=== PATIENT | male | born 1930 ===

== ENCOUNTER 2016-10-11 10:40 | Observation (INO) | payer MEDICARE, MEDICAID ==
[2016-10-11] VITALS (13 sets, daily range): BP systolic 129–165; BP diastolic 71–85
[~2016-10-11] VITALS: Ht 172.7 cm; Wt 77.1 kg
[~2016-10-11 10:40] MED LIST: ceFAZolin sod 1 GM in NS 55 ML IVPB ONE
--- NOTE | 2016-10-11 11:33 | Pre-Procedure Note/Attestation ---
Pre-Procedure Note/Attestation Complete Prior to Procedure Planned Procedure: not applicable Procedure Narrative: TURBT Indications for Procedure Pre-Operative Diagnosis: yes Attestation I attest that I discussed the nature of the procedure; its benefits; risks and complications; and alternatives (and the risks and benefits of such alternatives ), prior to the procedure, with the patient (or the patient's legal textile designs sales representative). I attest that, if there was a reasonable possibility of needing a blood transfusion, the patient (or the patient's legal textile designs sales representative) was given the [facility] standardized written summary, pursuant to the Pranay Wilder Blood Safety Act ([place] Health and Safety Code # 1645, as amended). I attest that I re-evaluated the patient just prior to the surgery and that there has been no change in the patient's H&P, except as documented below: Clark Nichole MD Oct 11, 2016 11:33
--- NOTE | 2016-10-11 11:39 | Brief Operative Note ---
Immediate Post Operative Note Operative Note Pre-op Diagnosis: yes Procedure: TURBT Post-op Diagnosis: same Post-op Diagnosis: same as pre-op Surgeon: Jason Nichole Anesthesia: general Specimen: yes Complications: none Condition: stable Estimated Blood Loss: minimal Implant(s) used?: No Clark Nichole MD Oct 11, 2016 11:39
[2016-10-11] MEDS ORDERED: JANUMET XR 50-1 EAC1 ORAL (11:55)
[2016-10-11] MEDS ORDERED: PAXIL20 MG ORAL (11:55)
[2016-10-11] MEDS ORDERED: ATORVASTATIN CA20 MG ORAL (11:56)
[2016-10-11] MEDS ORDERED: GLIPIZIDE XL10 M1 ORAL (11:57)
[2016-10-11] MEDS ORDERED: TRIAMTERENE-HC1 EAC6 ORAL (11:57)
[2016-10-11] MEDS ORDERED: TAMSULOSIN HCL0.4 MG ORAL (11:58)
[2016-10-11] MEDS ORDERED: BETAPACE80 MG PO (11:58)
[2016-10-11] MEDS ORDERED: PROSCAR5 MG ORAL (11:59)
[2016-10-11] MEDS ORDERED: BENAZEPRIL HCL10 MG ORAL (11:59)
[2016-10-11] MEDS ORDERED: NS Irrig 1000ml ONE (12:00)
[2016-10-11] MEDS ORDERED: LR 1000ml ONE (12:00)
[2016-10-11] MEDS ORDERED: Lidocaine 1% MPF 10mg/ml 5ml ONE (12:00)
[2016-10-11] MEDS ORDERED: Zemuron 50mg/5ml Inj IV ONE (12:00)
[2016-10-11] MEDS ORDERED: fentaNYL 250mcg/5ml ONE (12:00)
[2016-10-11] MEDS ORDERED: Neostigmine 1mg/ml 10ml Inj ONE (12:00)
[2016-10-11] MEDS ORDERED: Glycopyrrolate 0.2mg/ml 1ml Vial ONE (12:00)
[2016-10-11] MEDS ORDERED: Propofol 10mg/ml 20ml IV ONE (12:00)
[2016-10-11] MEDS ORDERED: Sterile Water Irrig 1000ml IRRIG ONE (12:00)
[2016-10-11] MEDS ORDERED: ELIQUIS5 MG PO (12:00)
[2016-10-11] MEDS ORDERED: Sterile Water For Irrig 2000ml IRRIG ONE ×2 (12:00→12:48)
[2016-10-11] MEDS ORDERED: Midazolam 2mg/2ml Inj ONE (12:00)
[2016-10-11] MEDS ORDERED: Iothalamate Meglumine 60% 30ML INJ ONE (12:01)
[2016-10-11] MEDS ORDERED: FENOFIBRIC ACI105 MG PO (12:01)
--- NOTE | 2016-10-11 12:30 | Anethesia Preoperative Eval ---
Anesthesia Pre-op PMH/ROS General Date of Evaluation: Oct 11, 2016 Time of Evaluation: 12:11 Anesthesiologist: Daina ASA Score: ASA 3 Mallampati Score Class I : Soft palate, uvula, fauces, pillars visible Class II: Soft palate, uvula, fauces visible Class III: Soft palate, base of uvula visible Class IV: Only hard plate visible Mallampati Classification: Class II Surgeon: Dionisio Diagnosis: Bladder Pain Surgical Procedure: TURBT Anesthesia History: none Family History: no anesthesia problems Allergies: Coded Allergies: No Known Allergies (Unverified , 10/10/16) Medications: see eMAR Past Medical History Cardiovascular: Reports: HTN, arrhythmia - AFib, other - HL Gastrointestinal/Genitourinary: Reports: GERD, other - Prostate CA Endocrine: Reports: DM PSxH Narrative: TURBTX2, Ventral Hernia Repair Anesthesia Pre-op Phys. Exam Physician Exam Last Vital Signs Date Time Temp Pulse Resp B/P Pulse Ox O2 Delivery O2 Flow Rate FiO2 10/11/16 11:35 98.2 73 18 139/77 97 Room Air Constitutional: NAD Neurologic: CN 2-12 intact Cardiovascular: RRR Respiratory: CTA Gastrointestinal: S/NT/ND Airway Exam Mallampati Score: Class II MO: limited ROM: limited Teeth: missing Anesthesia Pre-op A/P Risk Assessment & Plan Assessment: ASA 3 Plan: GA, BIS, Glidescope Pre-Antibiotics Dru Gram Ancef IV Given Within 1 Hr of Incision: Yes Time Given: 12:31 Edu Underwood MD Oct 11, 2016 12:30
[2016-10-11] MEDS ORDERED: LR 1000ml 1,000 ML IVLG SCH (12:44)
[2016-10-11] MEDS ORDERED: Midazolam 2mg/2ml Inj IVP PRN (12:45)
[2016-10-11] MEDS ORDERED: Atropine Inj 1mg/10ml Syr IV PRN (12:45)
[2016-10-11] MEDS ORDERED: Norco 5mg/325mg tab ORAL PRN ×3 (12:45→16:45)
[2016-10-11] MEDS ORDERED: Oxycodone/Acetaminophen 5-325 ORAL PRN (12:45)
[2016-10-11] MEDS ORDERED: Metoclopramide 10mg/2ml Inj IVP PRN (12:45)
[2016-10-11] MEDS ORDERED: Ketorolac 30mg Inj IV PRN (12:45)
[2016-10-11] MEDS ORDERED: LORazepam Inj 2mg/ml 1ml IV PRN ×2 (12:45→23:00)
[2016-10-11] MEDS ORDERED: Hydromorphone 0.5mg/0.5ml inj IVP PRN (12:45)
[2016-10-11] MEDS ORDERED: Ketorolac 60mg Inj IV PRN (12:45)
[2016-10-11] MEDS ORDERED: DiphenhydrAMINE 50mg/ml Inj IVP PRN (12:45)
[2016-10-11] MEDS ORDERED: Meperidine 25mg/ml Inj IV PRN (12:45)
[2016-10-11] MEDS ORDERED: Labetalol 5mg/ml 20ml vial IV PRN (12:45)
[2016-10-11] MEDS ORDERED: fentaNYL 100 mcg/2 mL IV PRN (12:45)
[2016-10-11] MEDS ORDERED: Norco 7.5mg/325mg tab ORAL PRN (12:45)
--- NOTE | 2016-10-11 13:05 | Immediate Post-Op Evaluation ---
Immediate Post-Op Evalulation Immediate Post-Op Evalulation Procedure: TURBT Date of Evaluation: Oct 11, 2016 Time of Evaluation: 14:04 IV Fluids: 500 LR Blood Products: 0 Estimated Blood Loss: 25 Urinary Output: 100 Blood Pressure Systolic: 129 Blood Pressure Diastolic: 74 Pulse Rate: 75 Respiratory Rate: 16 O2 Sat by Pulse Oximetry: 99 Temperature (Fahrenheit): 97.6 Pain Score (1-10): 2 Nausea: No Vomiting: No Complications 0 Patient Status: awake, reacts, patent, extubated, none Hydration Status: adequate Dru Gram Ancef IV Given Within 1 Hr of Incision: Yes Time Given: 12:31 Edu Underwood MD Oct 11, 2016 13:04
[2016-10-11] MEDS ORDERED: HYDROmorphone 1mg/ml Carpuject IVP PRN (16:45)
[2016-10-11] MEDS: D5 1/2NS w/KCl 20mEq 1,000 ML IV SCH (17:40)
[2016-10-11] MEDS: Docusate 100mg cap ORAL SCH ×2 (17:40→17:41)
[2016-10-11] MEDS: ceFAZolin sod 2 GM in D5W 110 ML IV SCH (20:10)
--- NOTE | 2016-10-11 20:41 | Internal Med Progress Note ---
Subjective Physician Name Stef Carranza Attending Physician Clark Nichole MD Current Medications Medications (Trade) Dose Ordered Sig/Gladys Route PRN Reason Start Time Stop Time Status Last Admin Dose Admin Acetaminophen (Tylenol) 650 mg Q4H PRN ORAL FEVER 10/11/16 16:45 11/10/16 16:44 Acetaminophen (Tylenol) 650 mg Q6H PRN ORAL Mild Pain (Pain Scale 1-3) 10/11/16 16:45 11/10/16 16:44 Acetaminophen/ Hydrocodone Bitart 1 tab 1 tab Q4H PRN ORAL Moderate Pain (Pain Scale 4-6) 10/11/16 16:45 10/18/16 16:44 Acetaminophen/ Hydrocodone Bitart 1 tab 1 tab Q4H PRN ORAL Moderate Pain (Pain Scale 4-6) 10/11/16 16:45 10/18/16 16:44 Cefazolin Sodium/ Dextrose (Ancef/D5W) 110 ml @ 220 mls/hr Q8H IV 10/11/16 20:30 10/12/16 04:59 10/11/16 20:10 Dextrose/ Electrolytes (D5 0.45%NS W/ KCl 20mEq) 1,000 ml @ 100 mls/hr Q10H IV 10/11/16 17:30 11/10/16 17:29 10/11/16 17:40 Docusate Sodium (Colace) 100 mg TWICE A DAY ORAL 10/11/16 18:00 11/10/16 17:59 Hydromorphone HCl (Dilaudid) 1 mg Q3H PRN IVP pain score 4-6 10/11/16 16:45 10/18/16 16:44 Ondansetron HCl (Zofran) 4 mg Q6H PRN IVP Nausea & Vomiting 10/11/16 16:45 11/10/16 16:44 Temazepam (Restoril) 7.5 mg HSPRN PRN ORAL Insomnia 10/11/16 14:00 10/18/16 13:59 Allergies: Coded Allergies: No Known Allergies (Unverified , 10/10/16) Subjective awake, alert, responsive, No CP or SOB Objective Last Vital Signs Date Time Temp Pulse Resp B/P Pulse Ox O2 Delivery O2 Flow Rate FiO2 10/11/16 16:15 97.9 80 16 150/83 98 Nasal Cannula 3.0 General Appearance: WD/WN, no apparent distress, alert EENT: PERRL/EOMI, normal ENT inspection Neck: non-tender, supple Cardiovascular: normal peripheral pulses, normal rate, regular rhythm, no JVD Respiratory/Chest: lungs clear, normal breath sounds, no respiratory distress Abdomen: normal bowel sounds, non tender, soft Genitourinary/Rectal: normal genital exam, other - flores cath with irrigation Extremities: normal range of motion, non-tender Edema: non-pitting Neurologic: recreation therapy director II-XII grossly normal, no motor/sensory deficits, abnormal gait , alert, oriented x 3, responsive, normal mood/affect Skin: normal pigmentation, warm/dry Assessment/Plan Assessment/Plan Bladder CA S/p TURBT (10/11/2016) DM 2 CKD stage 3 BPH Cardiac arrhythmia HTN Prostate CA s/p radiation Plan: IVF Bladder irrigation Abx: Ancef Monitor blood glucose level AM Labs resume home medications Stef Carranza MD Oct 11, 2016 20:41
[2016-10-11] MEDS ORDERED: Atorvastatin 20mg tab ORAL SCH (22:00)
[2016-10-11] MEDS: Sotalol 80mg tab ORAL SCH (22:42)
[2016-10-11] MEDS: Benazepril 10mg tab ORAL SCH (22:42)
[2016-10-11] MEDS: NovoLOG Insulin Flexpen SUBQ SCH (22:46)
[2016-10-12] VITALS: BP 139/74
[2016-10-12] MEDS: D5 1/2NS w/KCl 20mEq 1,000 ML IV SCH (03:41)
[2016-10-12] MEDS: ceFAZolin sod 2 GM in D5W 110 ML IV SCH (03:41)
[2016-10-12 04:00] VITALS: BP 154/82
[2016-10-12] MEDS: NovoLOG Insulin Flexpen SUBQ SCH (06:38)
[2016-10-12 06:59] LABS: MEAN CORPUSCULAR HEMOGLOBIN 29.1 PG (27.0-31.0); MEAN CORPUSCULAR HGB CONC 33.5 G/DL (32.0-36.0); MEAN CORPUSCULAR VOLUME 87 FL (80-99); MEAN PLATELET VOLUME 6.6 FL (6.5-10.1); PLATELET COUNT 247 K/UL (150-450); RED BLOOD COUNT 4.82 M/UL (4.70-6.10); RED CELL DISTRIBUTION WIDTH 13.1 % (11.6-14.8); WHITE BLOOD COUNT 10.1 K/UL (4.8-10.8)
[2016-10-12 07:21] LABS: ALANINE AMINOTRANSFERASE 11 U/L (3-41); ALBUMIN/GLOBULIN RATIO 1.1 (1.0-2.7); ANION GAP 16 (5-15); ASPARTATE AMINO TRANSFERASE 16 U/L (5-40); CALCIUM 8.5 mg/dL (8.6-10.2); CARBON DIOXIDE 27 mEQ/L (20-30); CHLORIDE 93 mEQ/L (98-107); CREATININE 1.3 mg/dL (0.7-1.2); HEMOLYSIS 6; POTASSIUM 3.5 mEQ/L (3.4-4.9); SODIUM 136 mEQ/L (135-145); TOTAL PROTEIN 6.3 g/dL (6.6-8.7)
[2016-10-12 07:43] LABS: MAGNESIUM 1.5 mg/dL (1.7-2.5); PHOSPHORUS 2.1 mg/dL (2.5-4.8)
[2016-10-12 08:00] VITALS: BP 148/88
[2016-10-12] MEDS: Benazepril 10mg tab ORAL SCH (08:28)
[2016-10-12 08:29] VITALS: BP 148/88
[2016-10-12] MEDS: Docusate 100mg cap ORAL SCH (08:29)
[2016-10-12] MEDS: Sotalol 80mg tab ORAL SCH (08:29)
[2016-10-12] MEDS ORDERED: metFORMIN 500mg tab ORAL SCH (09:00)
[2016-10-12] MEDS ORDERED: PARoxetine 20mg tab ORAL SCH (09:00)
[2016-10-12 10:08] LABS: BAND NEUTROPHILS % (MANUAL) 0 % (0-8); BASOPHILS % (MANUAL) 0 % (0-2); EOSINOPHILS % (MANUAL) 0 % (0-3); LYMPHOCYTES % (MANUAL) 7 % (20-45); NEUTROPHILS % (MANUAL) 89 % (45-75); PLATELET ESTIMATE ADEQUATE; PLATELET MORPHOLOGY NORMAL; TOTAL CELLS COUNTED 100
[2016-10-12] MEDS ORDERED: NS Irrig 4000ml IRRIG ONE (11:19)
[2016-10-12] MEDS ORDERED: Tubing IV Secondary IV ONE (11:19)
--- NOTE | 2016-10-12 14:27 | Discharge Summary ---
Discharge Summary Hospital Course Date of Admission Oct 11, 2016 at 14:58 Date of Discharge Oct 12, 2016 at 11:20 Admitting Diagnosis HPI Wilton Woo is a 86 year old male who was admitted on Oct 11, 2016 at 14:58 for Bladder Tumor Hospital Course The patient was seen and examined at bedside and all new and available data was reviewed in the patients chart. Last 24 Hour Vital Signs Date Time Temp Pulse Resp B/P Pulse Ox O2 Delivery O2 Flow Rate FiO2 10/12/16 08:29 86 148/88 10/12/16 08:28 148/88 10/12/16 08:00 97.9 86 20 148/88 95 10/12/16 04:00 97.0 102 18 154/82 96 Nasal Cannula 2.0 10/12/16 00:00 97.0 101 20 139/74 96 Nasal Cannula 2.0 10/11/16 22:42 94 156/85 10/11/16 22:42 156/85 10/11/16 20:00 96.8 94 18 156/85 97 Nasal Cannula 2.0 10/11/16 16:15 97.9 80 16 150/83 98 Nasal Cannula 3.0 10/11/16 15:50 98.0 75 19 160/78 100 Nasal Cannula 3.0 10/11/16 15:35 75 17 165/79 100 Nasal Cannula 3.0 10/11/16 15:20 75 17 164/83 100 Nasal Cannula 3.0 10/11/16 15:05 76 17 159/76 100 Nasal Cannula 3.0 10/11/16 14:50 76 18 160/80 100 Nasal Cannula 3.0 10/11/16 14:35 74 16 160/75 100 Nasal Cannula 3.0 (Patient was seen earlier today. Signature timestamp does not reflect patient encounter time) Stef Carranza MD Discharge Discharge Disposition Patient was discharged to Home with Home Health(06) Discharge Diagnoses: Stef Carranza MD Oct 12, 2016 14:27
--- NOTE | 2016-10-12 23:10 | Discharge Summary ---
DATE OF ADMISSION: 10/11/2016 DATE OF DISCHARGE: 10/12/2016 HISTORY AND HOSPITAL COURSE: This is an 86-year-old very delightful [place]-speaking gentleman. PAST MEDICAL HISTORY: Treated for bladder cancer, history of prostate cancer, status post radiation, diabetes type 2, chronic kidney disease, stage 3, BPH, cardiac arrhythmia, and hypertension who was presented to the hospital as per request by Dr. Clark Nichole. The patient underwent TURBT by Dr. Nichole upon arrival to the hospital. The patient tolerated procedure well. Overnight, he had no complication and subsequently, he was discharged home to be follow up with Dr. Nichole as outpatient. FINAL DIAGNOSES: 1. Bladder cancer, status post TURBT. 2. Diabetic type 2. 3. Chronic kidney disease, stage 3. 4. Benign prostatic hypertrophy. 5. Cardiac arrhythmia. 6. Hypertension. 7. Prostate cancer, status post radiation. MEDICATION ON DISCHARGE: Continue discharge medication list. ACTIVITY: As tolerated. DIET: Would be 1800 ADA cardiac diet. FOLLOWUP: The patient will follow up with Dr. Nichole within one to two weeks. Stef Carranza M.D. DR: ELVER JOB#: [id number] CC:
--- NOTE | 2016-10-13 22:28 | Operative Note - Dictated ---
DATE OF OPERATION: 10/11/2016 PREOPERATIVE DIAGNOSIS: Bladder tumor. POSTOPERATIVE DIAGNOSIS: Bladder tumor. OPERATIONS: Transurethral resection of the bladder tumor and bilateral retrograde pyelograms. OPERATED BY: Clark Nichole M.D. ANESTHESIA: General. FINDINGS: Large mass on the left lateral side of the bladder. 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 Treatment options were explained to him in great length including all potential complications and he signed the consent. The patient was brought to the operating room, placed in lithotomy position, prepped and draped in standard fashion. Under general anesthesia, cystoscopy was introduced into the bladder. Left ureter was strangulated retrograde pyelogram was negative. We had difficulty finding the right ureter so, we avoided doing a retrograde pyelogram on the right side. Using transurethral resectoscope, the mass was resected. After the resecting the superficial of the bladder we found ejection of old clot leaking material or soft tissue material from the pocket on the left lateral wall of the bladder, which after draining and removing all of that material. We find that to be bottom of that capsule left lateral wall of the bladder. Additional tumors were resected and sent to pathologic examination. Tumor bed was fulgurated and Jacinto catheter was placed and left indwelling. The patient tolerated the procedure well. No evidence of complications. Clark Nichole M.D. DR: ADRIENNE JOB#: [id number] CC:
--- NOTE | 2016-10-17 15:56 | Diagnostic Imaging Report ---
Indication: MASS, intraoperative Technique: Digital intraoperative images Comparison: None Findings: Intraoperative images document opacification of left ureter and left renal collecting system, the latter being minimally dilated. Impression: Intraoperative imaging, as described
== END 2016-10-12 11:20 | disposition home or self-care (01) ==
LOC: SUR 10:40 → 3E 14:58
DX: D49.4 Neoplasm of unspecified behavior of bladder (principal); I12.9 Hypertensive chronic kidney disease with stage 1 through stage 4 chronic kidney disease, or unspecified chronic kidney disease; N18.3 Chronic kidney disease, stage 3 (moderate); E11.40 Type 2 diabetes mellitus with diabetic neuropathy, unspecified; N40.0 Benign prostatic hyperplasia without lower urinary tract symptoms; F32.9 Major depressive disorder, single episode, unspecified; I48.91 Unspecified atrial fibrillation; K21.9 Gastro-esophageal reflux disease without esophagitis; I70.0 Atherosclerosis of aorta; E78.2 Mixed hyperlipidemia; R32 Unspecified urinary incontinence; R35.0 Frequency of micturition; R35.1 Nocturia; N52.9 Male erectile dysfunction, unspecified; N32.81 Overactive bladder; Z85.828 Personal history of other malignant neoplasm of skin; Z85.46 Personal history of malignant neoplasm of prostate
CPT/HCPCS: 36415; 51702; 52240; 74420; 76000; 80053; 82962 ×2; 83735; 84100; 85007; 85025; 96360 ×2; 96361 ×2; 96365; 96367 ×2; 96374; G0378 ×2; J0690; J1170 ×2; J1815; J2250; J2405; J2704; J2710; J3010; J7120; Q9961; 94003; 94150